=== PATIENT | female | born 1965 | race Asian ===

== ENCOUNTER 2020-06-17 12:56 | Emergency (ER) | payer OTHER, BC ==
[~2020-06-17] VITALS: Ht 165.1 cm; Wt 74.8 kg
[2020-06-17 13:15] VITALS: Ht 165.1 cm; Wt 74.8 kg
[2020-06-17 15:08] VITALS: BP 145/71
== END 2020-06-17 15:08 | disposition home or self-care (01) ==
LOC: ED 12:56
DX: S20.01XA Contusion of right breast, initial encounter (principal); Z90.49 Acquired absence of other specified parts of digestive tract; W22.8XXA Striking against or struck by other objects, initial encounter; Y93.89 Activity, other specified; Y92.89 Other specified places as the place of occurrence of the external cause; Y99.8 Other external cause status